=== PATIENT | male | born 1965 | race African-American/Black ===

== ENCOUNTER → 2019-01-10 | Day surgery (SDC) | payer MEDICARE ==
[~2019-01-10] MED LIST: CYCLOBENZAPRINE10 MG PO; DIAZEPAM5 MG PO; FENTANYL CITRATE/PF 100MCG/2 ML INJ ONE; MIDAZOLAM HCL 5MG/ML 2ML VIAL ONE; NEXIUM40 MG PO; NORCO 10-325 T1 EACH PO; OR PHACO EYE KIT ONE; PREOP PHACO EYE KIT ONE
--- OUTSIDE RECORDS SUMMARY | 2019-01-10 08:52 | XMS REPORT ---
Author Author [facility] Address Unknown Phone Unavailable Care Team Providers Care Senior Corporate Strategy Manager Name Role Phone Unavailable Unavailable Problems This patient has no known problems. Allergies, Adverse Reactions, Alerts This patient has no known allergies or adverse reactions. Medications This patient has no known medications. Encounters Start Date/Time End Date/Time Encounter Type Admission Type Attending [facility] Care Facility Care Department Encounter ID 2019-01-04 14:52:00 2019-01-04 14:52:00 Emergency E [id number]
[2019-01-10 12:00] VITALS: BP 115/80
== END | disposition home or self-care (01) ==
LOC: OR 08:49
PROVIDERS: ATTEND Ophthalmology
DX: H25.12 Age-related nuclear cataract, left eye (principal); G47.33 Obstructive sleep apnea (adult) (pediatric); M54.5 Low back pain; M62.422 Contracture of muscle, left upper arm; F32.1 Major depressive disorder, single episode, moderate; Z88.0 Allergy status to penicillin; Z88.8 Allergy status to other drugs, medicaments and biological substances; Z68.33 Body mass index [BMI] 33.0-33.9, adult
CPT/HCPCS: 66984; J2250; J3010

== ENCOUNTER → 2022-01-13 | Day surgery (SDC) | payer MEDICARE ==
[~2022-01-13] MED LIST changes: +AIMOVIG AU70 MG/1 ML SC; +BOTOX100 UNIT IV; +CAMBIA50 MG PO; +CLOPIDOGREL75 MG PO; +ELIQUIS5 MG PO; +HUMIRA40 MG/0.8 SC; +MIDAZOLAM HCL 2 MG/2 ML VIAL ONE; -MIDAZOLAM HCL 5MG/ML 2ML VIAL ONE; +MULTI-VITAMIN1 EACH PO; +NORCO 7.5-3251 EACH PO
[2022-01-13 14:52] VITALS: BP 146/84
== END | disposition home or self-care (01) ==
LOC: OR 10:35
PROVIDERS: ATTEND Ophthalmology
DX: H25.11 Age-related nuclear cataract, right eye (principal); I10 Essential (primary) hypertension; M06.9 Rheumatoid arthritis, unspecified; K21.9 Gastro-esophageal reflux disease without esophagitis; Z88.6 Allergy status to analgesic agent; Z88.0 Allergy status to penicillin; Z88.8 Allergy status to other drugs, medicaments and biological substances; Z79.02 Long term (current) use of antithrombotics/antiplatelets; Z79.899 Other long term (current) drug therapy; Z86.718 Personal history of other venous thrombosis and embolism
CPT/HCPCS: 66984; J2250; J3010; V2632